=== PATIENT | male | born 1980 | race Caucasian/White ===

== ENCOUNTER 2016-12-28 17:25 | Emergency (ER) | payer MEDICAID ==
[~2016-12-28] VITALS: Ht 160 cm; Wt 100.0 kg
[~2016-12-28 17:25] MED LIST: ACET500T98 PO
[2016-12-28 17:28] VITALS: Ht 160 cm; Wt 100.0 kg
[2016-12-28] MEDS ORDERED: HYDR-902 PO (18:10)
[2016-12-28] MEDS ORDERED: IBUP800T25 PO (18:11)
--- NOTE | 2016-12-28 18:17 | ERD ---
ER Documentation Chief Complaint Date/Time DATE: 12/28/16 TIME: 18:11 Chief Complaint RIGHT GROIN/HIP/BCP PIN X 1 WEEK HPI Is a 36-year-old male who is complaining of pain to his right groin for the past 4 days. The patient said he had an extensive amount of walking on 23 December pushing a stroller up and down the street and hills.. Says explains of sharp pain in the right groin he flexes his hip when he walks. He has no radiation of pain no pain in the testicle no abdominal pain no right lower quadrant pain no fever nausea vomiting diarrhea or lack of appetite. He also denies back pain but says he has a chronic history of sciatica in the past. Denies fever or any GI symptoms ROS All systems reviewed and are negative except as per history of present illness. Medications Home Meds Active Scripts Ibuprofen* (Motrin*) 800 Mg Tab, 800 MG PO Q6H Y for PAIN AND OR ELEVATED TEMP, #30 TAB Prov:LARA MARINELLI DO 12/28/16 Hydrocodone/Acetaminophen ([place] 10-325 Tablet) 1 Each Tablet, 1 TAB PO Q6H Y for PAIN, #20 TAB Prov:LARA MARINELLI DO 12/28/16 Reported Medications Acetaminophen (Tylenol) 500 Mg Tab, PO Q4 07/16/12 Allergies Allergies: Coded Allergies: No Known Allergy (Unverified , 07/16/12) PMhx/Soc Medical and Surgical Hx: pt denies Medical Hx, pt denies Surgical Hx Hx Alcohol Use: No Hx Substance Use: No Hx Tobacco Use: No Smoking Status: Never smoker FmHx Family History: No coronary disease Physical Exam Vitals Vital Signs Date Time Temp Pulse Resp B/P Pulse Ox O2 Delivery O2 Flow Rate FiO2 12/28/16 17:28 100.7 90 18 144/90 99 Physical Exam Const: Well-developed, well-nourished Head: Atraumatic, normocephalic Eyes: Normal Conjunctiva, PERRLA, EOMI, normal sclera, no nystagmus ENT: Normal External Ears, Nose and Mouth, moist mucus membranes. Neck: Full range of motion. No meningismus, no lymphadenopathy. Resp: Clear to auscultation bilaterally, no wheezing, rhonchi, rales Cardio: Regular rate and rhythm, no murmurs, S1 S2 present Abd: Soft, non tender x 4, non distended. Normal bowel sounds, no guarding or rebound, no pulsitile abdominal masses or bruits, there is no testicular tenderness or swelling, no pain in the right lower quadrant, Skin: No petechiae or rashes, no ecchymosis , no maculopapular rash Back: No midline or flank tenderness Ext: There is no tenderness in the right groin on palpation however the patient flexes his hip actively he has severe pain in the right groin. When I perform passive movement of hip flexion there is 0 out of 10 pain no cyanosis, or edema, FROM x 4, normal inspection, neurovascularly intact x 4 Neur: Awake and alert, STR 5/5 x 4, sensation intact x 4, no focal findings, cerebellum intact Psych: Normal Mood and Affect Results 24 hrs Current Medications Medications (Trade) Dose Ordered Sig/Carlos Route PRN Reason Start Time Stop Time Status Last Admin Dose Admin Acetaminophen/ Hydrocodone Bitart ([place] (/325)) 1 tab ONCE ONCE PO 12/28/16 18:30 12/28/16 18:31 Procedures/MDM Patient clearly has strained groin probably from overexertion walking etc. He has clear severe pain with active motion of the hip but no pain with passive. This clearly indicates a muscle/tendon injury. Provide him with crutches and pain control Departure Diagnosis: Primary Impression: Injury of groin Encounter type: initial encounter Qualified Code: S39.91XA - Injury of groin , initial encounter Condition: Stable Patient Instructions: Groin Strain Referrals: NO PRIMARY,CARE PHYSICIAN (PCP) LARA MARINELLI DO Dec 28, 2016 18:16
[2016-12-28] MEDS ORDERED: HYDROCODONE/APAP (10/325) TAB PO ONE (18:30)
[2016-12-28 18:55] VITALS: BP 138/87; PULSE 78; RESP 20; TEMP 99.7
== END 2016-12-28 18:56 | disposition home or self-care (01) ==
LOC: FTE 17:25
DX: S39.91XA Unspecified injury of abdomen, initial encounter (principal); X50.9XXA Other and unspecified overexertion or strenuous movements or postures, initial encounter; Y92.9 Unspecified place or not applicable
CPT/HCPCS: Z7502; Z7610; 99283

== ENCOUNTER 2017-03-13 12:28 | Emergency (ER) | payer MEDICAID ==
[~2017-03-13] VITALS: Wt 78.0 kg
[~2017-03-13 12:28] MED LIST changes: +HYDR-902 PO; +IBUP800T25 PO
[2017-03-13] MEDS ORDERED: KETOROLAC 60 MG INJ IM STA (12:48)
[2017-03-13] MEDS ORDERED: HYDROCODONE/APAP (5/325) TAB PO ONE (13:00)
--- NOTE | 2017-03-13 13:22 | RADRPT ---
PROCEDURE: XR left shoulder. CLINICAL INDICATION: Pain TECHNIQUE: Axillary, Internal and external rotation views of the left shoulder were performed. COMPARISON: None. FINDINGS: There is normal osseous mineralization and alignment. No acute fracture or osseous lesion is identified. There are normal joints without evidence of arthritis or dislocation. The soft tissues are unremarkable. RPTAT: AA IMPRESSION: Unremarkable left shoulder. < .Bryon Cary MD, MD Date Time Electronically viewed and signed by .Bryon Cary MD, on 03/13/2017 13:21 .S/
[2017-03-13] MEDS ORDERED: CYCL-319 PO (13:31)
[2017-03-13] MEDS ORDERED: HYDR-906 PO (13:31)
[2017-03-13] MEDS ORDERED: IBUP800T25 PO (13:31)
--- NOTE | 2017-03-13 13:33 | ERD ---
ER Documentation Chief Complaint Date/Time DATE: 03/13/17 TIME: 13:31 Chief Complaint LEFT SHOULDER PAIN X 1 MONTHS HPI 36-year-old male presents with left shoulder pain. He denies any trauma. Pain is worse with movement and he admits to limited range of motion. Denies any numbness or tingling but states at times the pain radiates to his hands. He has been trying ibuprofen and other [id number] medications but it does not help. ROS All systems reviewed and are negative except as per history of present illness. Medications Home Meds Active Scripts Hydrocodone/Acetaminophen ([place] 5-325 Tablet) 1 Each Tablet, 1 TAB PO Q6H Y for PAIN, #20 TAB Prov:KARON WATSON PA-C 03/13/17 Ibuprofen* (Motrin*) 800 Mg Tab, 800 MG PO Q6, #30 TAB Prov:KARON WATSON PA-C 03/13/17 Cyclobenzaprine Hcl* (Cyclobenzaprine Hcl*) 10 Mg Tablet, 10 MG PO BID, #20 TAB Prov:KARON WATSON PA-C 03/13/17 Ibuprofen* (Motrin*) 800 Mg Tab, 800 MG PO Q6H Y for PAIN AND OR ELEVATED TEMP, #30 TAB Prov:LARA MARINELLI DO 12/28/16 Hydrocodone/Acetaminophen ([place] 10-325 Tablet) 1 Each Tablet, 1 TAB PO Q6H Y for PAIN, #20 TAB Prov:LARA MARINELLI DO 12/28/16 Reported Medications Acetaminophen (Tylenol) 500 Mg Tab, PO Q4 07/16/12 Allergies Allergies: Coded Allergies: No Known Allergy (Unverified , 07/16/12) PMhx/Soc Medical and Surgical Hx: pt denies Medical Hx, pt denies Surgical Hx Hx Alcohol Use: No Hx Substance Use: No Hx Tobacco Use: No FmHx Family History: No diabetes Physical Exam Vitals Vital Signs Date Time Temp Pulse Resp B/P Pulse Ox O2 Delivery O2 Flow Rate FiO2 03/13/17 12:31 98.0 106 18 133/81 99 Physical Exam Const: [] Head: Atraumatic Eyes: Normal Conjunctiva ENT: Normal External Ears, Nose and Mouth. Neck: Full range of motion..~ No meningismus. Resp: Clear to auscultation bilaterally Cardio: Regular rate and rhythm, no murmurs Back: No midline or flank tenderness Ext: Left shoulder has limited active range of motion approximately 50%, no bony abnormalities, no tenderness of the clavicle, sensation to light touch is intact, motorcycle repairer strength is 5 out of 5 Results 24 hrs Current Medications Medications (Trade) Dose Ordered Sig/Carlos Route PRN Reason Start Time Stop Time Status Last Admin Dose Admin Ketorolac Tromethamine (Toradol) 60 mg ONCE STAT IM 03/13/17 12:48 03/13/17 12:49 DC 03/13/17 13:17 Acetaminophen/ Hydrocodone Bitart ([place] (5/325)) 1 tab ONCE ONCE PO 03/13/17 13:00 03/13/17 13:01 DC 03/13/17 13:17 Procedures/MDM 36-year-old male presents with 1 month of shoulder pain. There is no trauma. He is neurovascular intact. X-ray was negative. He was given Toradol and [place] here in the emergency room and discharged with ibuprofen, Flexeril, and [place]. Patient counseled regarding my diagnostic impression and care plan. Prior to discharge all questions answered. Pt agrees with treatment plan and understands strict return precautions. Pt is instructed to follow up with primary care provider within 24-48 hours. Precautionary instructions provided including instructions to return to the ER if not improving or for any worsening or changing symptoms or concerns. Departure Diagnosis: Primary Impression: Shoulder pain Condition: Stable Patient Instructions: Shoulder Pain (Uncertain Cause) Referrals: [facility] () [facility] se ayers hecho un examen mdico de control que le indica que no est en harpreet condicin que requiera tratamiento urgente en el Departamento de Emergencia. Un estudio ms profundo y el tratamiento de ríos condicin pueden esperar sin ningn riesgo hasta que usted sea atendida/o en el consultorio de ríos mdico o harpreet cl cristina. Es responsabilidad suya arreglar harpreet codey para el seguimiento del ynes. MANEJO DE CONDICIONES NO URGENTES EN EL FUTURO 1) Si usted tiene un mdico de atencin primaria: Usted debera llamar a ríos mdico de atencin primaria antes de venir al departamento de emergencia. Despus de las horas de consultorio, ríos doctor o ríos asociado/a est disponible por telfono. El mdico o enfermero de sheryl en el servicio telefnico puede asesorarle por ac medio para atender el problema, o ynes contrario se puede programar harpreet codey. 2) Si usted no tiene un mdico de atencin primaria: Llame al mdico o condado institucions de referencia que aparece abajo vi las horas de consultorio para hacer harpreet codey para que le vean. SI USTED NO PUEDE PAGAR PARA MITCHEL UN MEDICO puede ir a: [facility] [address] [place] [address] [facility] [address], [place] [id number] [place] [address] [address] [place] [address] [facility] [address] [place], [place] [id number] Additional Instructions: Call your primary care doctor TOMORROW for an appointment during the next 1-2 days.See the doctor sooner or return here if your condition worsens before your appointment time. KARON WATSON PA-C Mar 13, 2017 13:33
== END 2017-03-13 13:46 | disposition home or self-care (01) ==
LOC: FTE 12:28
DX: M25.512 Pain in left shoulder (principal)
CPT/HCPCS: 73030; 96372; J1885; Z7502; Z7610

== ENCOUNTER 2018-01-17 15:20 | Emergency (ER) | END 2018-01-17 18:14 | disposition home or self-care (01) ==